=== PATIENT | male | born 1995 | race Caucasian/White ===

== ENCOUNTER 2016-08-10 20:46 | Emergency (ER) | payer OTHER ==
[2016-08-10 21:59] VITALS: BP 125/72
== END 2016-08-10 21:59 | disposition home or self-care (01) ==
LOC: ED 20:46
DX: S62.301A Unspecified fracture of second metacarpal bone, left hand, initial encounter for closed fracture (principal); S62.303A Unspecified fracture of third metacarpal bone, left hand, initial encounter for closed fracture; S62.305A Unspecified fracture of fourth metacarpal bone, left hand, initial encounter for closed fracture; W18.30XA Fall on same level, unspecified, initial encounter; Y93.89 Activity, other specified; Y92.89 Other specified places as the place of occurrence of the external cause; Y99.8 Other external cause status
CPT/HCPCS: J1885; Q0092

== ENCOUNTER 2019-10-21 08:48 | Emergency (ER) | payer MEDICAID ==
[~2019-10-21] VITALS: Ht 182.9 cm; Wt 83.5 kg
[2019-10-21 08:55] VITALS: Ht 182.9 cm; Wt 83.5 kg
[2019-10-21 09:19] LABS: PLATELET COUNT 265 x10^3mcL (130-400); RED CELL DISTRIBUTION WIDTH 13.6 % (11.5-14.5)
[2019-10-21 09:50] LABS: UA SPECIFIC GRAVITY 1.015 (1.005-1.035)
[2019-10-21 09:53] LABS: microscopic required? YES; urine erythrocyte TRACE (NEGATIVE)
[2019-10-21 10:03] LABS: CARBON DIOXIDE 31.5 mmol/L (21-32); CHLORIDE SERUM 100 mmol/L (98-107); CREATININE SERUM 0.9 mg/dL (0.7-1.3); GFR1 > 60 mL/min; GLUCOSE SERUM 104 mg/dL (74-106); POTASSIUM SERUM 3.7 mmol/L (3.5-5.1); SODIUM SERUM 137 mmol/L (136-145)
[2019-10-21 10:08] LABS: ALBUMIN 4.3 g/dL (3.4-5.0); ALKALINE PHOSPHATASE 88 U/L (46-116); ALT/SGPT 35 U/L (16-63); AST/SGOT 36 U/L (15-37); BILIRUBIN TOTAL 1.06 mg/dL (0.20-1.00); LIPASE 111 IU/L (73-393); MAGNESIUM 2.4 mg/dL (1.8-2.4); TOTAL PROTEIN, SERUM 7.7 g/dL (6.4-8.2)
[2019-10-21 10:12] LABS: AMPHETAMINE QUAL UR NONE DETECTED (See below)
[2019-10-21 11:42] VITALS: BP 117/60
== END 2019-10-21 11:42 | disposition home or self-care (01) ==
LOC: ED 08:48
PROVIDERS: Emergency Medicine
DX: R10.9 Unspecified abdominal pain (principal); R11.10 Vomiting, unspecified; J45.909 Unspecified asthma, uncomplicated; F12.20 Cannabis dependence, uncomplicated; F10.20 Alcohol dependence, uncomplicated; Y90.9 Presence of alcohol in blood, level not specified
CPT/HCPCS: 82962; 83880; G0480; J2405; J3490; J7030